=== PATIENT | female | born 1975 | race Caucasian/White ===

== ENCOUNTER 2017-02-20 19:38 | Inpatient (IN) | payer MEDICAID ==
[~2017-02-20] VITALS: Ht 165.1 cm; Wt 51.5 kg
[2017-02-20 19:40] VITALS: BP 136/64; PULSE 97; RESP 15; TEMP 99.5; O2SAT 94
[2017-02-20 21:37] VITALS: BP 126/78; PULSE 87; RESP 16; O2SAT 92
[2017-02-20] MEDS ORDERED: methylPREDNISolone SOD SUCC 125 MG/2 ML VIAL IVP ONE (22:00)
[2017-02-20] MEDS ORDERED: SODIUM CHLOR 0.9% 1000 ML INJ 1,000 ML IV ONE (22:00)
[2017-02-20] MEDS ORDERED: SODIUM CHLORIDE 0.9% FLUSH 10 ML FLUSH IVF PRN (22:00)
[2017-02-20 22:17] LABS: AUTOMATED NEUTROPHIL # 11.8 TH/MM3 (1.8-7.7); BASOPHIL # 0.1 TH/MM3 (0-0.2); BASOPHIL % 0.8 % (0.0-2.0); EOSINOPHIL % 0.2 % (0.0-4.0); HEMO FLAGS DIFF FINAL; LYMPH % 19.7 % (9.0-44.0); LYMPHOCYTE # 3.3 TH/MM3 (1.0-4.8); MEAN CELL VOLUME 90.8 FL (80.0-100.0); MEAN CORPUSCULAR HEMOGLOBIN 31.5 PG (27.0-34.0); MEAN CORPUSCULAR HGB CONC 34.7 % (32.0-36.0); MONO % 8.1 % (0.0-8.0); NEUT % 71.2 % (16.0-70.0); PLATELET COUNT 267 TH/MM3 (150-450); RED BLOOD COUNT 4.19 MIL/MM3 (4.00-5.30); RED CELL DISTRIBUTION WIDTH 12.6 % (11.6-17.2); WHITE BLOOD COUNT 16.5 TH/MM3 (4.0-11.0)
--- NOTE | 2017-02-20 22:21 | PD ---
HPI Chief Complaint: Chest Pain Time Seen by Provider: 21:45 Travel History International Travel<30 days: No Contact w/Intl Traveler<30days: No Traveled to known affect area: No History of Present Illness HPI Patient is a 41-year-old female who presents to emergency room with multiple complaints. Patient reports that since the beginning of January, she's had a URI. Patient reports that she's had increased cough, congestion, reports that she has really never felt any better with her symptoms. Reports that for the past few days, she's had increased productive whitish sputum. Reports that she began to have chest pain around 1 PM today, reports that chest pain feels like a "pressure" to her chest which is substernal in nature. Reports that nothing makes the chest pain better, reports to take a deep breath does exacerbate her chest pain. Reports that she has never had chest pain in the past. Denies radiation of this pain. Patient does report history of smoking, there is history of hypertension or hyperlipidemia, denies early family history of coronary disease or LA. PFSH Past Medical History Anxiety: Yes Tetanus Vaccination: Unknown Influenza Vaccination: No ?: Not LMP: January 2017 Menopausal: Yes : 6 Para: 3 Miscarriage: 1 : 1 Past Surgical History Section: Yes Social History Alcohol Use: No Tobacco Use: Yes (7 PER DAY) Substance Use: No Allergies-Medications (Allergen,Severity, Reaction): Coded Allergies: No Known Allergies (Unverified , 02/20/17) Reported Meds & Prescriptions Reported Meds & Active Scripts Active No Active Prescriptions or Reported Medications Review of Systems General / Constitutional: No: Fever Eyes: No: Visual changes HENT: No: Headaches Cardiovascular: Positive: Chest Pain or Discomfort Respiratory: Positive: Cough, Shortness of Breath Gastrointestinal: No: Abdominal Pain Genitourinary: No: Dysuria Musculoskeletal: No: Pain Skin: No Rash Neurologic: No: Weakness Psychiatric: No: Depression Endocrine: No: Polydipsia Hematologic/Lymphatic: No: Easy Bruising Physical Exam Narrative GENERAL: mild distress SKIN: Warm and dry. HEAD: Atraumatic. Normocephalic. EYES: Pupils equal and round. No scleral icterus. No injection or drainage. ENT: No nasal bleeding or discharge. Mucous membranes pink and moist. NECK: Trachea midline. No JVD. CARDIOVASCULAR: Regular rate and rhythm. No murmur appreciated. RESPIRATORY: No accessory muscle use. Patient with wheezing at lung bases GASTROINTESTINAL: Abdomen soft, non-tender, nondistended. Hepatic and splenic margins not palpable. MUSCULOSKELETAL: No obvious deformities. No clubbing. No cyanosis. No edema. NEUROLOGICAL: Awake and alert. No obvious cranial nerve deficits. Motor grossly within normal limits. Normal speech. PSYCHIATRIC: Appropriate mood and affect; insight and judgment normal. Data Data Last Documented VS Vital Signs Date Time Temp Pulse Resp B/P Pulse Ox O2 Delivery O2 Flow Rate FiO2 02/20/17 23:39 92 Nasal Cannula 2 02/20/17 23:00 96 16 110/59 02/20/17 19:40 99.5 Orders Complete Blood Count With Diff (02/20/17 21:56) Comprehensive Metabolic Panel (02/20/17 21:56) B-Type Natriuretic Peptide (02/20/17 21:56) D-Dimer (02/20/17 21:56) Act Partial Throm Time (Ptt) (02/20/17:56) Prothrombin Time / Inr (Pt) (02/20/17 21:56) Magnesium (Mg) (02/20/17 21:56) Ckmb (Isoenzyme) Profile (02/20/17 21:56) Troponin I (02/20/17 21:56) Urinalysis - C+S If Indicated (02/20/17 21:56) Influenzae A/B Antigen (02/20/17 21:56) Iv Access Insert/Monitor (02/20/17 21:56) Electrocardiogram (02/20/17 21:56) Ecg Monitoring (02/20/17 21:56) Oximetry (02/20/17 21:56) Chest, Single Ap (02/20/17 21:56) Sodium Chloride 0.9% Flush (Ns Flush) (02/20/17 22:00) Methylprednisolone So Succ Inj (Solumedr (02/20/17 22:00) Albuterol-Ipratropium Neb (Duoneb Neb) (02/20/17 22:00) Sodium Chlor 0.9% 1000 Ml Inj (Ns 1000 M (02/20/17 22:00) Influenzae A/B Antigen (02/20/17 22:53) Blood Culture (02/20/17 22:53) Ct Pulmonary Angiogram (02/20/17 22:54) Ceftriaxone Inj (Rocephin Inj) (02/21/17 00:00) Azithromycin Inj (Zithromax Inj) (02/21/17 00:00) Labs Laboratory Tests Test 02/20/17 22:00 White Blood Count 16.5 TH/MM3 Red Blood Count 4.19 MIL/MM3 Hemoglobin 13.2 GM/DL Hematocrit 38.0 % Mean Corpuscular Volume 90.8 FL Mean Corpuscular Hemoglobin 31.5 PG Mean Corpuscular Hemoglobin 34.7 % Concent Red Cell Distribution Width 12.6 % Platelet Count 267 TH/MM3 Mean Platelet Volume 8.3 FL Neutrophils (%) (Auto) 71.2 % Lymphocytes (%) (Auto) 19.7 % Monocytes (%) (Auto) 8.1 % Eosinophils (%) (Auto) 0.2 % Basophils (%) (Auto) 0.8 % Neutrophils # (Auto) 11.8 TH/MM3 Lymphocytes # (Auto) 3.3 TH/MM3 Monocytes # (Auto) 1.3 TH/MM3 Eosinophils # (Auto) 0.0 TH/MM3 Basophils # (Auto) 0.1 TH/MM3 CBC Comment DIFF FINAL Differential Comment Prothrombin Time 11.2 SEC Prothromb Time International 1.0 RATIO Ratio Activated Partial 30.9 SEC Thromboplast Time D-Dimer Quantitative (PE/DVT) 0.69 MG/L FEU Sodium Level 135 MEQ/L Potassium Level 3.5 MEQ/L Chloride Level 99 MEQ/L Carbon Dioxide Level 25.7 MEQ/L Anion Gap 10 MEQ/L Blood Urea Nitrogen 7 MG/DL Creatinine 0.74 MG/DL Estimat Glomerular Filtration 86 ML/MIN Rate Random Glucose 79 MG/DL Calcium Level 8.5 MG/DL Magnesium Level 2.1 MG/DL Total Bilirubin 0.6 MG/DL Aspartate Amino Transf 16 U/L (AST/SGOT) Alanine Aminotransferase 19 U/L (ALT/SGPT) Alkaline Phosphatase 53 U/L Total Creatine Kinase 70 U/L Troponin I LESS THAN 0.02 NG/ML B-Type Natriuretic Peptide 14 PG/ML Total Protein 7.7 GM/DL Albumin 3.4 GM/DL MDM Medical Decision Making Medical Screen Exam Complete: Yes Emergency Medical Condition: Yes Interpretation(s) EKG at 2211: NSR at 75bpm, qt/qtc: 363/391, no acute ST or T-wave changes Vital Signs Date Time Temp Pulse Resp B/P Pulse Ox O2 Delivery O2 Flow Rate FiO2 02/20/17 21:37 84 02/20/17 21:37 87 16 126/78 92 Room Air 02/20/17 19:40 99.5 97 15 136/64 94 Room Air Vital Signs Date Time Temp Pulse Resp B/P Pulse Ox O2 Delivery O2 Flow Rate FiO2 02/20/17 21:37 84 02/20/17 21:37 87 16 126/78 92 Room Air 02/20/17 19:40 99.5 97 15 136/64 94 Room Air Differential Diagnosis ACS, PE, pneumonia, influenza, arrhythmia, pneumothorax Narrative Course Patient is a 41-year-old female who presents to emergency room with multiple complaints. Patient reports that since January 02, she has had increased cough , congestion, URI. She is a smoker, reports that she has not been on any antibiotics for her symptoms. Reports that around 1 PM today, she began to have chest pain. Patient reports that chest pain is substernal in nature, reports that chest pain feels like a "pressure to my chest". Patient reports that chest pain has been constant, worse with taking deep breath. Patient with no history of coronary disease or LA in the past. 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 Labs as well as cardiac enzymes and x-ray chest ordered. Patient does have wheezing to her lower base the lungs, will give steroids as well as neb treatments. Will reevaluate. patient hypoxic on room air with pulse ox of 89% - will put patient on oxygen Patient has been pancultured and will treat for pneumonia Last Impressions CT Angiography 02/20/17 Signed Impressions: Service Date/Time: Monday, February 20, 2017 23:05 - CONCLUSION: 1. Bilateral parenchymal infiltrates. 2. Mediastinal and hilar adenopathy. 3. No evidence for pulmonary embolism. Vinod Zarate MD Chest X-Ray 02/20/172155 Signed Impressions: Service Date/Time: Monday, February 20, 2017 22:11 - CONCLUSION: Improvement in left lung base infiltrate. May Bahena MD Critical Care Narrative Aggregate critical care time was 30 minutes. Time to perform other separately billable procedures was not included in the critical care time. My time did not include minutes spent treating any other patients simultaneously or on activities that did not directly contribute to the patient's treatment. The services I provided to this patient were to treat and/or prevent clinically significant deterioration that could result in: , decompensation, deterioration I provided critical care services requiring my management, as noted below: Chart data review, documentation time, medication orders and management, vital sign assessments/reviewing monitor data, ordering and reviewing lab tests, ordering and interpreting/reviewing x-rays and diagnostic studies, care of the patient and discussion of the patient with the admitting physicians. Physician Communication Physician Communication case reviewed with dr paulino who accepts pt to service Diagnosis Primary Impression: Hypoxia Additional Impressions: Pneumonia Qualified Code: J18.9 - Pneumonia due to infectious organism, unspecified laterality, unspecified part of lung Chest pain Qualified Code: R07.9 - Chest pain, unspecified type Admitting Information Admitting Physician Requests: Admit Scripts No Active Prescriptions or Reported Meds Cinthya St DO Feb 20, 2017 22:21
[2017-02-20] MEDS: RESP: ALBUTEROL 2.5 MG/IPRATROPIUM 0.5 MG NEB (SCH) INH (22:26)
--- NOTE | 2017-02-20 22:26 | RADRPT ---
EXAM DATE/TIME: 02/20/2017 22:11 [facility] COMPARISON: CHEST PA & LAT, February 18, 2013, 20:41. INDICATIONS : Short of breath and cough. MEDICAL HISTORY : None. SURGICAL HISTORY : None. ENCOUNTER: Initial ACUITY: 1 week PAIN SCORE: 0/10 LOCATION: Bilateral chest FINDINGS: Mild left lung base atelectasis and/or infiltrate is seen, however improved. The rest of the examinat ion has not significantly changed. CONCLUSION: Improvement in left lung base infiltrate. May Bahena MD on February 20, 2017 at 22:24 Board Certified Radiologist. This report was verified electronically.
[2017-02-20 22:29] LABS: ANION GAP 10 MEQ/L (5-15); AST (GOT) 16 U/L (15-37); BICARBONATE 25.7 MEQ/L (21.0-32.0); BLOOD UREA NITROGEN 7 MG/DL (7-18); CHLORIDE 99 MEQ/L (98-107); GLOMERULAR FILTRATION RATE 86 ML/MIN (>89); MAGNESIUM 2.1 MG/DL (1.5-2.5); POTASSIUM 3.5 MEQ/L (3.5-5.1); SODIUM (NA) 135 MEQ/L (136-145)
[2017-02-20 22:34] LABS: ALKALINE PHOSPHATASE 53 U/L (45-117); ALT (GPT) 19 U/L (10-53); TOTAL BILIRUBIN ADULT 0.6 MG/DL (0.2-1.0)
[2017-02-20 22:36] LABS: CREATINE KINASE 70 U/L (26-192)
[2017-02-20 22:42] LABS: APTT (PATIENT) 30.9 SEC (24.3-30.1); PROTHROMBIN TIME - PATIENT 11.2 SEC (9.8-11.6)
[2017-02-20 23:00] VITALS: BP 110/59; PULSE 96; RESP 16; O2SAT 92
[2017-02-20] MEDS ORDERED: IOHEXOL 350 MG/ML 10 ML VIAL (for RAD DIAG) IV ONE (23:05)
[2017-02-20 23:38] VITALS: O2SAT 89
[2017-02-21] VITALS (10 sets, daily range): BP systolic 90–147; BP diastolic 55–84; PULSE 52–102; RESP 16–20; TEMP 98.2–99.4; O2SAT 94–98
[2017-02-21] MEDS ORDERED: AZITHROMYCIN INJ 500 MG in SODIUM CHLOR 0.9% 250 ML INJ 250 ML IV ONE ×2
[2017-02-21] MEDS ORDERED: cefTRIAXone INJ 1,000 MG in SODIUM CHLORIDE 0.9% INJ 100 ML IV ONE ×2
--- NOTE | 2017-02-21 00:03 | RADRPT ---
EXAM DATE/TIME: 02/20/2017 23:05 [facility] COMPARISON: CHEST SINGLE AP, February 20, 2017, 22:11. INDICATIONS : Chest pain. Elevated D-Dimer. IV CONTRAST: 70 cc Omnipaque 350 (iohexol) IV RADIATION DOSE: 4.30 CTDIvol (mGy) MEDICAL HISTORY : None SURGICAL HISTORY : None. ENCOUNTER: Initial ACUITY: 1 day PAIN SCALE: 2/10 LOCATION: Bilateral chest TECHNIQUE: Volumetric scanning of the chest was performed using a pulmonary embolism protocol MIP images were re constructed. Using automated exposure control and adjustment of the mA and/or kV according to patien t size, radiation dose was kept as low as reasonably achievable to obtain optimal diagnostic quality images. FINDINGS: The apical emphysematous changes are seen. There is consolidation within the right middle lobe and li ngula with mild left lower lobe airspace disease. There are no effusions. There is lymphadenopathy pr esent in the mediastinum, with 1.4 cm subcarinal adenopathy, 1.5 cm short axis right paratracheal jeannette nopathy, 1 cm right hilar adenopathy. Calcified 7.2 mm short axis left hilar lymph node. There is no evidence for pulmonary embolism. Calcified granuloma in the left lower lobe measuring 1.1 cm. Calcifi ed left infrahilar lymph nodes. CONCLUSION: 1. Bilateral parenchymal infiltrates. 2. Mediastinal and hilar adenopathy. 3. No evidence for pulmonary embolism. Vinod Zarate MD on February 20, 2017 at 23:59 Board Certified Radiologist. This report was verified electronically.
[2017-02-21] MEDS ORDERED: ONDANSETRON HCL 4 MG/2 ML VIAL IVP PRN (01:00)
[2017-02-21] MEDS ORDERED: NALOXONE HCL 0.4 MG/ML AMP IV PRN (01:00)
[2017-02-21] MEDS ORDERED: SODIUM CHLORIDE 0.9% FLUSH 10 ML FLUSH IV FLUSH PRN (01:00)
[2017-02-21] MEDS ORDERED: RESP: ALBUTEROL 2.5 MG/IPRATROPIUM 0.5 MG NEB (PRN) NEB (01:15)
[2017-02-21 01:17] LABS: BLOOD, URINE MOD (NEG); COMMENT (UR) CULT NOT INDICATED; CULTURE IF INDICATED CULT NOT INDICATED; GLUCOSE,URINE NEG (NEG); KETONE, URINE 10 mg/dL (NEG); MUCUS URINE FEW /lpf (OCC); NITRITE,URINE NEG (NEG); SQUAMOUS EPITHELIAL CELL URINE 4 /hpf (0-5); URINE COLOR YELLOW (YELLW/STRAW)
--- NOTE | 2017-02-21 02:35 | HHI.HP ---
[facility] Kings Olivo MD Admission Diagnosis Hypoxia with multilobar pneumonia Diagnoses: Travel History International Travel<30 Days: No Contact w/Intl Traveler <30 Da: No Traveled to Known Affected Are: No History of Present Illness History from patient, ER physician communication, and review of medical records. Patient reported that yesterday, she started having fever started around 3 PM. She states it was not going away and to about 5 PM or so and she also started having chest pain. She pointed to the right side of the chest with associated tightness and shortness of breath. She therefore finally decided to come to hospital. Patient states that since January, she just was not feeling well. She states she has have headaches, and cough on and off. She is also complaining about congestion since then on daily basis on and off. States that she was actually sick for 2 weeks straight in the month of January. 6 and she also reports of headaches and light sensitivity but started then. He does suffer from migraine headaches. She reports of cough, congestion, or foamy quite colorless sputum production.' She reports that one of her children was also sick with nausea and vomiting and diarrhea the month of January. Review of Systems Except as stated in HPI: all other systems reviewed are Neg Past Family Social History Past Medical History none pneumonia 4 yrs ago Past Surgical History 2 c sections Reported Medications none Allergies: Coded Allergies: No Known Allergies (Unverified , 02/20/17) Family History mother side- psychiatry issues sister bipolar autism in daughter father side- obesity- dm, gout, ; colon cancer mets to brain Social History half a pack a day etoh- about 2 beers a day Physical Exam Vital Signs Vital Signs Date Time Temp Pulse Resp B/P Pulse Ox O2 Delivery O2 Flow Rate FiO2 02/21/17 01:06 88 16 95/57 94 Nasal Cannula 2 02/20/17 23:39 92 Nasal Cannula 2 02/20/17 23:38 89 Room Air 02/20/17 23:00 96 16 110/59 92 Room Air 02/20/17 21:37 84 02/20/17 21:37 87 16 126/78 92 Room Air 02/20/17 19:40 99.5 97 15 136/64 94 Room Air Physical Exam GENERAL: This is a well-nourished, well-developed patient, in no apparent distress. SKIN: No rashes, ecchymoses or lesions. Cool and dry. HEAD: Atraumatic. Normocephalic. No temporal or scalp tenderness. EYES: No scleral icterus. No injection or drainage. ENT: Nose without bleeding, purulent drainage or septal hematoma. Airway patent. NECK: Trachea midline. No JVD CARDIOVASCULAR: Regular rate and rhythm without murmurs, gallops, or rubs. RESPIRATORY: Clear to auscultation. Breath sounds equal bilaterally. No wheezes , rales, or rhonchi. GASTROINTESTINAL: Abdomen soft, non-tender, nondistended. No guarding. MUSCULOSKELETAL: Extremities without clubbing, cyanosis, or edema No calf tenderness. NEUROLOGICAL: Awake and alert. Motor and sensory grossly within normal limit. Normal speech. Laboratory Laboratory Tests Test 02/20/17 02/21/17 22:00 00:36 White Blood Count 16.5 Red Blood Count 4.19 Hemoglobin 13.2 Hematocrit 38.0 Mean Corpuscular Volume 90.8 Mean Corpuscular Hemoglobin 31.5 Mean Corpuscular Hemoglobin 34.7 Concent Red Cell Distribution Width 12.6 Platelet Count 267 Mean Platelet Volume 8.3 Neutrophils (%) (Auto) 71.2 Lymphocytes (%) (Auto) 19.7 Monocytes (%) (Auto) 8.1 Eosinophils (%) (Auto) 0.2 Basophils (%) (Auto) 0.8 Neutrophils # (Auto) 11.8 Lymphocytes # (Auto) 3.3 Monocytes # (Auto) 1.3 Eosinophils # (Auto) 0.0 Basophils # (Auto) 0.1 CBC Comment DIFF FINAL Differential Comment Prothrombin Time 11.2 Prothromb Time International 1.0 Ratio Activated Partial 30.9 Thromboplast Time D-Dimer Quantitative (PE/DVT) 0.69 Sodium Level 135 Potassium Level 3.5 Chloride Level 99 Carbon Dioxide Level 25.7 Anion Gap 10 Blood Urea Nitrogen 7 Creatinine 0.74 Estimat Glomerular Filtration 86 Rate Random Glucose 79 Calcium Level 8.5 Magnesium Level 2.1 Total Bilirubin 0.6 Aspartate Amino Transf 16 (AST/SGOT) Alanine Aminotransferase 19 (ALT/SGPT) Alkaline Phosphatase 53 Total Creatine Kinase 70 Troponin I LESS THAN 0.02 B-Type Natriuretic Peptide 14 Total Protein 7.7 Albumin 3.4 Urine Color YELLOW Urine Turbidity CLEAR Urine pH 6.0 Urine Specific [place] 1.050 Urine Protein TRACE Urine Glucose (UA) NEG Urine Ketones 10 Urine Occult Blood MOD Urine Nitrite NEG Urine Bilirubin NEG Urine Urobilinogen LESS THAN 2.0 Urine Leukocyte Esterase NEG Urine RBC 1 Urine WBC 1 Urine Squamous Epithelial 4 Cells Urine Mucus FEW Microscopic Urinalysis Comment CULT NOT INDICATED Date/Time Procedure Status Source Growth 02/20/17 22:45 Aerobic Blood Culture Received Blood Peripheral Pending 02/20/17 22:45 Anaerobic Blood Culture Received Blood Peripheral Pending 02/20/17 22:00 Influenza Types A,B Antigen (ALCIRA) - Final Complete Nasal Aspirate NEGATIVE FOR FLU A AND B ANTIGEN.... Result Diagram: 02/20/170 02/20/170 Imaging Last [address] Angiography 02/20/174 Signed Impressions: Service Date/Time: Monday, February 20, 2017 23:05 - CONCLUSION: 1. Bilateral parenchymal infiltrates. 2. Mediastinal and hilar adenopathy. 3. No evidence for pulmonary embolism. Vinod Zarate MD Chest X-Ray 02/20/172155 Signed Impressions: Service Date/Time: Monday, February 20, 2017 22:11 - CONCLUSION: Improvement in left lung base infiltrate. May Bahena MD Assessment and Plan Assessment and Plan Impression: Bilateral multilobar pneumonia Hypoxiasecondary to above COPD Plan: Patient received Rocephin and azithromycin in ER. Next and was switched to Levaquin 750 mg IV every 24 hours. Will watch for clinical improvement. Follow blood cultures. Nebs when necessary. DVT prophylaxiswith Lovenox. Discussed Condition With Patient, ER physician, ER nurse Physician Certification 2 Midnight Certification Type: Admission for Inpatient Services Order for Inpatient Services The services are ordered in accordance with Medicare regulations or non- Medicare payer requirements, as applicable. In the case of services not specified as inpatient-only, they are appropriately provided as inpatient services in accordance with the 2-midnight benchmark. Estimated LOS (days): 2 days is the estimated time the patient will need to remain in the hospital, assuming treatment plan goals are met and no additional complications. Post-Hospital Plan: Miguel Sparks MD Feb 21, 2017 02:35
[2017-02-21] MEDS: LEVOFLOXACIN 750 MG PREMIX INJ 150 ML IV SCH (08:20)
[2017-02-21] MEDS: ENOXAPARIN SODIUM 40 MG/0.4 ML SYRINGE SQ SCH (08:21)
[2017-02-21] MEDS: SODIUM CHLORIDE 0.9% FLUSH 10 ML FLUSH IV FLUSH SCH ×2 (09:00→20:27)
--- NOTE | 2017-02-21 20:01 | EKG ---
Date Performed: 02/20/2017 Time Performed: 22:11:42 PTAGE: 41 years EKG: Sinus rhythm When compared to previous tracing, r wave progression is worse Likely due to lead placement differen jewels. ABNORMAL ECG PREVIOUS TRACING : 02/18/2013 18.33 DOCTOR: Ponce Wu Interpretating Date/Time 02/21/2017 20:00:12
[2017-02-22] VITALS (8 sets, daily range): BP systolic 109–139; BP diastolic 58–70; PULSE 62–78; RESP 16–18; TEMP 97.8–100.2; O2SAT 94–97
[2017-02-22 03:48] LABS: MRSA PCR NEGATIVE (NEGATIVE); STAPH AUREUS PCR NEGATIVE (NEGATIVE)
[2017-02-22 07:24] LABS: AUTOMATED NEUTROPHIL # 11.3 TH/MM3 (1.8-7.7); BASOPHIL # 0.2 TH/MM3 (0-0.2); EOSINOPHIL % 0.3 % (0.0-4.0); HEMATOCRIT 33.8 % (35.0-46.0); HEMO FLAGS DIFF FINAL; LYMPH % 20.7 % (9.0-44.0); LYMPHOCYTE # 3.3 TH/MM3 (1.0-4.8); MEAN CELL VOLUME 93.4 FL (80.0-100.0); MEAN CORPUSCULAR HEMOGLOBIN 30.4 PG (27.0-34.0); MEAN CORPUSCULAR HGB CONC 32.5 % (32.0-36.0); MONO % 6.3 % (0.0-8.0); NEUT % 71.7 % (16.0-70.0); PLATELET COUNT 212 TH/MM3 (150-450); RED BLOOD COUNT 3.62 MIL/MM3 (4.00-5.30); RED CELL DISTRIBUTION WIDTH 13.2 % (11.6-17.2); WHITE BLOOD COUNT 15.8 TH/MM3 (4.0-11.0)
[2017-02-22 08:00] LABS: BICARBONATE 28.3 MEQ/L (21.0-32.0); POTASSIUM 3.8 MEQ/L (3.5-5.1)
[2017-02-22] MEDS: LEVOFLOXACIN 750 MG PREMIX INJ 150 ML IV SCH (08:25)
[2017-02-22] MEDS: SODIUM CHLORIDE 0.9% FLUSH 10 ML FLUSH IV FLUSH SCH ×2 (08:25→20:22)
[2017-02-22] MEDS: ENOXAPARIN SODIUM 40 MG/0.4 ML SYRINGE SQ SCH (08:25)
[2017-02-22] MEDS ORDERED: INFLUENZA VIRUS VACCINE (QUADRIVALENT) 0.5 ML SYR IM ONE (10:00)
[2017-02-22] MEDS ORDERED: PNEUMOCOCCAL POLYVALENT INJ 25 MCG/0.5 ML SYR IM ONE (10:00)
[2017-02-23 03:42] VITALS: BP 101/58; PULSE 69; RESP 16; TEMP 99.3; O2SAT 95
[2017-02-23 08:00] VITALS: BP 115/55; PULSE 68; RESP 16; TEMP 98.7; O2SAT 94
[2017-02-23] MEDS: SODIUM CHLORIDE 0.9% FLUSH 10 ML FLUSH IV FLUSH SCH (09:00)
[2017-02-23] MEDS: ENOXAPARIN SODIUM 40 MG/0.4 ML SYRINGE SQ SCH (09:00)
[2017-02-23] MEDS: LEVOFLOXACIN 750 MG PREMIX INJ 150 ML IV SCH (09:00)
[2017-02-23] MEDS ORDERED: LEVA750T PO (12:11)
--- NOTE | 2017-02-23 12:13 | HHI.DS ---
Discharge Summary Admission Date Feb 21, 2017 at 00:31 Discharge Date: Feb 23, 2017 Admitting Diagnosis Hypoxia with multilobar pneumonia (1) Chest pain ICD Code: R07.9 (2) Pneumonia ICD Code: J18.9 Procedures None Brief History - From Admission History from patient, ER physician communication, and review of medical records. Patient reported that yesterday, she started having fever started around 3 PM. She states it was not going away and to about 5 PM or so and she also started having chest pain. She pointed to the right side of the chest with associated tightness and shortness of breath. She therefore finally decided to come to hospital. Patient states that since January, she just was not feeling well. She states she has have headaches, and cough on and off. She is also complaining about congestion since then on daily basis on and off. States that she was actually sick for 2 weeks straight in the month of January. 6 and she also reports of headaches and light sensitivity but started then. He does suffer from migraine headaches. She reports of cough, congestion, or foamy quite colorless sputum production.' She reports that one of her children was also sick with nausea and vomiting and diarrhea the month of January. CBC/BMP: 02/22/17 0612 02/22/17 0612 Significant Findings Laboratory Tests Test 02/20/17 02/21/17 02/22/17 22:00 00:36 06:12 White Blood Count 16.5 TH/MM3 15.8 TH/MM3 (4.0-11.0) (4.0-11.0) Neutrophils (%) (Auto) 71.2 % 71.7 % (16.0-70.0) (16.0-70.0) Monocytes (%) (Auto) 8.1 % (0.0-8.0) Neutrophils # (Auto) 11.8 TH/MM3 11.3 TH/MM3 (1.8-7.7) (1.8-7.7) Monocytes # (Auto) 1.3 TH/MM3 1.0 TH/MM3 (0-0.9) (0-0.9) Activated Partial 30.9 SEC Thromboplast Time (24.3-30.1) D-Dimer Quantitative (PE/DVT) 0.69 MG/L FEU (0.00-0.50) Sodium Level 135 MEQ/L (136-145) Estimat Glomerular Filtration 86 ML/MIN (>89) Rate Troponin I LESS THAN 0.02 NG/ML (0.02-0.05) Urine Specific [place] 1.050 (1.002-1.035) Urine Ketones 10 mg/dL (NEG) Urine Occult Blood MOD (NEG) Urine Mucus FEW /lpf (OCC) Red Blood Count 3.62 MIL/MM3 (4.00-5.30) Hemoglobin 11.0 GM/DL (11.6-15.3) Hematocrit 33.8 % (35.0-46.0) Imaging Last Impressions CT Angiography 02/20/172253 Signed Impressions: Service Date/Time: Monday, February 20, 2017 23:05 - CONCLUSION: 1. Bilateral parenchymal infiltrates. 2. Mediastinal and hilar adenopathy. 3. No evidence for pulmonary embolism. Vinod Zarate MD Chest X-Ray 02/20/172155 Signed Impressions: Service Date/Time: Monday, February 20, 2017 22:11 - CONCLUSION: Improvement in left lung base infiltrate. May Bahena MD PE at Discharge GENERAL: Well-nourished, well-developed patient. SKIN: Warm and dry. HEAD: Normocephalic. EYES: No scleral icterus. No injection or drainage. NECK: Supple, trachea midline. No JVD or lymphadenopathy. CARDIOVASCULAR: Regular rate and rhythm without murmurs, gallops, or rubs. RESPIRATORY: Breath sounds equal bilaterally. No accessory muscle use. GASTROINTESTINAL: Abdomen soft, non-tender, nondistended. EXTREMITIES: No cyanosis, or edema. NEUROLOGICAL: Awake, alert, and oriented x 3. Non-focal. Hospital Course The patient was admitted to the hospital and treated with Levaquin. She did clinically improve. She is ambulatory on home oxygen. She'll be discharged home today. Encouraged to follow-up with primary care physician. Pt Condition on Discharge: Stable Discharge Disposition: Discharge Home Discharge Time: <= 30 minutes Discharge Instructions DIET: Follow Instructions for: As Tolerated, No Restrictions Activities you can perform: Regular-No Restrictions New Medications: Levofloxacin (Levaquin) 750 Mg Tab 750 MG PO DAILY Infection #7 Ref 0 TAB Viola Orona MD Feb 23, 2017 12:13
--- NOTE | 2017-02-23 12:13 | HHI.PR ---
Subjective Remarks This note is a late entry for February 22. No dyspnea. Cough improving. Past walk test. Objective Vitals Vital Signs Date Time Temp Pulse Resp B/P Pulse Ox O2 Delivery O2 Flow Rate FiO2 02/23/17 08:00 98.7 68 16 115/55 94 02/23/17 03:42 99.3 69 16 101/58 95 02/22/17 23:45 99.7 68 16 109/64 95 02/22/17 20:00 69 02/22/17 19:37 100.2 72 16 133/63 94 02/22/17 16:00 97.8 64 18 139/65 97 I/O 02/22/17 02/22/17 02/22/17 02/23/17 02/23/17 02/23/17 07:00 15:00 23:00 07:00 15:00 23:00 Intake Total 240 ml 1000 ml 240 ml 240 ml Output Total 450 ml 700 ml 0 ml Balance -210 ml 300 ml 240 ml 240 ml Intake Oral 240 ml 1000 ml 240 ml 240 ml Output Urine Total 450 ml 700 ml Stool Total 0 ml # Voids 3 2 # Bowel Movements 0 0 0 Result Diagram: 02/22/1761102/22/17 06 Objective Remarks GENERAL: Well-nourished, well-developed patient. SKIN: Warm and dry. HEAD: Normocephalic. EYES: No scleral icterus. No injection or drainage. NECK: Supple, trachea midline. No JVD or lymphadenopathy. CARDIOVASCULAR: Regular rate and rhythm without murmurs, gallops, or rubs. RESPIRATORY: Breath sounds equal bilaterally. No accessory muscle use. GASTROINTESTINAL: Abdomen soft, non-tender, nondistended. EXTREMITIES: No cyanosis, or edema. NEUROLOGICAL: Awake, alert, and oriented x 3. Non-focal. A/P Assessment and Plan -Bilateral multilobar pneumonia - clinically improved Hypoxiaresolved COPD - without acute exacerbation Continue Viola Ray MD Feb 23, 2017 12:13
== END 2017-02-23 13:45 | disposition home or self-care (01) | DRG 190 ==
LOC: NEPA 19:38 → NEDA 02-21 00:31 → NEDH 02-21 04:47 → N04B 02-21 12:21
PROVIDERS: ADMIT Family Medicine; ATTEND Family Medicine
DX: J44.0 Chronic obstructive pulmonary disease with (acute) lower respiratory infection (principal); J18.9 Pneumonia, unspecified organism; J18.1 Lobar pneumonia, unspecified organism; R09.02 Hypoxemia; G43.909 Migraine, unspecified, not intractable, without status migrainosus; F17.200 Nicotine dependence, unspecified, uncomplicated; E78.5 Hyperlipidemia, unspecified; Z80.0 Family history of malignant neoplasm of digestive organs; Z83.3 Family history of diabetes mellitus; Z81.8 Family history of other mental and behavioral disorders; Z23 Encounter for immunization
CPT/HCPCS: 71010; 71275; 80048; 80053; 81001; 82550; 83735; 83880; 84484; 85025; 85379; 85610; 85730; 87040; 87640; 87641; 87804; 90686; 90732; 93005; 94620; 94640; 94664; 96361; 96374; J0456; J0696; J1650; J1956; J2930; J7030; J7050; Q2038; Q9967

== ENCOUNTER → 2017-10-31 | Outpatient (CLI) | payer MEDICAID ==
[~2017-10-31] MED LIST: LEVA750T PO
--- NOTE | 2017-10-31 09:33 | RADRPT ---
EXAM DATE/TIME: 10/31/2017 09:03 [place] COMPARISON: No previous studies available for comparison. INDICATIONS : Abnormal liver function test. MEDICAL HISTORY : Asthma. SURGICAL HISTORY : section. Oral surgery. ENCOUNTER: Initial ACUITY: 1 day PAIN SCORE: 0/10 LOCATION: Abdomen. MEASUREMENTS: LIVER: 14.0 cm length COMMON DUCT: 2 mm RIGHT KIDNEY: 11.0 x 5.3 x 3.2 cm SPLEEN: 7.5 cm length FINDINGS: LIVER: Mildly inhomogeneous echotexture without focal lesion or ductal dilatation. There is no evidence of ascites. There is normal hepatopedal blood flow in the portal vein. COMMON DUCT: No intraluminal mass or stone visualized. GALLBLADDER: Contains no stones, demonstrates no wall thickening or pericholecystic fluid. PANCREAS: The visualized portions are within normal limits. RIGHT KIDNEY: No hydronephrosis, stone or mass. SPLEEN: No focal lesion. CONCLUSION: The liver is mildly inhomogeneous with no focal lesion or ductal dilatation. Braden Busch MD on October 31, 2017 at 9:30 Board Certified Radiologist. This report was verified electronically.
== END ==
LOC: HRAD 08:23
DX: R94.5 Abnormal results of liver function studies (principal)
CPT/HCPCS: 76705

== ENCOUNTER 2018-01-07 20:43 | Emergency (ER) | payer MEDICAID ==
[2018-01-07 20:44] VITALS: BP 139/73; PULSE 86; RESP 16; TEMP 98.1; O2SAT 99
[2018-01-07 21:14] VITALS: RESP 14; O2SAT 94
--- NOTE | 2018-01-07 21:29 | PD ---
HPI Chief Complaint: Allergic/Adverse Reaction Time Seen by Provider: 21:15 Travel History International Travel<30 days: No Contact w/Intl Traveler<30days: No Traveled to known affect area: No History of Present Illness HPI 42-year-old female complains of throat swelling. Patient states that she ate some fish this evening. Patient states that she started having feeling of throat swelling subsequently. Patient came immediately to the emergency room. Patient denies any history of allergy to fish in the past. Patient denies any medical problem. Patient is not on any routine medication. Patient states that she does not have any history of allergy to medication. Patient denies any chance of being . Patient denies any chest pain or shortness of breath. PFSH Past Medical History Arthritis: No Asthma: Yes Autoimmune Disease: No Anxiety: Yes (Pt. states "Not at this time"but, formally Dx. @ 3 Yrs. ago) Depression: No Heart Rhythm Problems: No Cancer: No Cardiovascular Problems: No High Cholesterol: No Chemotherapy: No Chest Pain: No Congestive Heart Failure: No COPD: No Cerebrovascular Accident: No Diabetes: No Endocrine: No GERD: No Genitourinary: No Hiatal Hernia: No Immune Disorder: No Kidney Stones: No Musculoskeletal: No Neurologic: No Psychiatric: No Reproductive: No Respiratory: Yes Migraines: No Radiation Therapy: Yes Renal Failure: No Seizures: No Sickle Cell Disease: No Sleep Apnea: No Thyroid Disease: No Ulcer: No ?: Not Menopausal: Yes : 6 Para: 3 Miscarriage: 1 : 1 Past Surgical History Abdominal Surgery: No AICD: No Arteriovenous Shunt: No Cardiac Surgery: No Section: Yes Ear Surgery: No Endocrine Surgery: No Eye Surgery: No Genitourinary Surgery: Yes Gynecologic Surgery: Yes () Insulin Pump: No Joint Replacement: No Oral Surgery: Yes (Lower teeth pulled) Pacemaker: No Thoracic Surgery: No Other Surgery: Yes Social History Alcohol Use: No Tobacco Use: Yes (7 PER DAY) Substance Use: No Allergies-Medications (Allergen,Severity, Reaction): Coded Allergies: No Known Allergies (Unverified , 02/20/17) Reported Meds & Prescriptions Reported Meds & Active Scripts Active Zantac (Ranitidine HCl) 300 Mg Tab 300 Mg PO DAILY Prednisone 20 Mg Tab 20 Mg PO BID Review of Systems General / Constitutional: No: Fever Eyes: No: Visual changes HENT: No: Headaches Cardiovascular: No: Chest Pain or Discomfort Respiratory: No: Shortness of Breath Gastrointestinal: No: Abdominal Pain Genitourinary: No: Dysuria Musculoskeletal: No: Pain Skin: No Rash Neurologic: No: Weakness Psychiatric: No: Depression Endocrine: No: Polydipsia Hematologic/Lymphatic: No: Easy Bruising Physical Exam Narrative GENERAL: Well-nourished, well-developed patient. SKIN: Focused skin assessment warm/dry. HEAD: Normocephalic. EYES: No scleral icterus. No injection or drainage. Throat: No evidence of any edema or swelling. NECK: Supple, trachea midline. No JVD or lymphadenopathy. CARDIOVASCULAR: Regular rate and rhythm without murmurs, gallops, or rubs. RESPIRATORY: Breath sounds equal bilaterally. No accessory muscle use. No stridor or wheezes. GASTROINTESTINAL: Abdomen soft, non-tender, nondistended. MUSCULOSKELETAL: No cyanosis, or edema. BACK: Nontender without obvious deformity. No CVA tenderness. Neurologic exam normal. Data Data Last Documented VS Vital Signs Date Time Temp Pulse Resp B/P (MAP) Pulse Ox O2 Delivery O2 Flow Rate FiO2 01/07/18 21:14 14 94 Room Air 01/07/18 20:44 98.1 86 Orders Orders Dexamethasone Inj (Decadron Inj) (01/07/18 21:30) Diphenhydramine Inj (Benadryl Inj) (01/07/18 21:30) Ed Discharge Order (01/07/18 21:53) MDM Medical Decision Making Medical Screen Exam Complete: Yes Emergency Medical Condition: Yes Interpretation(s) 21:45 PM. EKG shows sinus rhythm. T-wave inversion in III, aVR, V1, with mild ST elevation in V2 and more prominent ST elevation in V3. ST Sloping in V4 V5 and V6. Differential Diagnosis Differential diagnosis including allergic reaction, angioedema. Narrative Course 42-year-old female with complaint of throat swelling after she ate fish this evening. Benadryl 50 mg IM. Decadron 8 mg IM. 21:54 PM. ReExamination patient is feeling better. Patient will be discharged home. Diagnosis Primary Impression: Allergic reaction Qualified Codes: T78.40XA - Allergy, unspecified, initial encounter Patient Instructions: General Instructions Additional Instructions: Benadryl as directed. Prednisone as directed. Follow-up with personal physician. Return if worse. Return immediately if chest pain shortness of breath. Med/Other Pt SpecificInfo: Prescription(s) given Scripts Ranitidine (Zantac) 300 Mg Tab 300 MG PO DAILY, #7 TAB 0 Refills Prov: Richard Davis MD 01/07/18 Prednisone (Prednisone) 20 Mg Tab 20 MG PO BID, #10 TAB 0 Refills Prov: Richard Davis MD 01/07/18 Disposition: 01 DISCHARGE HOME Condition: Stable Richard Davis MD Jan 07, 2018 21:29
[2018-01-07] MEDS ORDERED: DEXAMETHASONE SOD PHOS 4 MG/ML VIAL IM ONE (21:30)
[2018-01-07] MEDS ORDERED: diphenhydrAMINE HCL 50 MG/ML VIAL IM ONE (21:30)
[2018-01-07] MEDS ORDERED: ZANT300T PO (21:32)
[2018-01-07] MEDS ORDERED: PRED20 PO (21:32)
== END 2018-01-07 22:24 | disposition home or self-care (01) ==
LOC: NEPC 20:43
DX: T78.40XA Allergy, unspecified, initial encounter (principal)
CPT/HCPCS: 96372; 99283; J1100; J1200